=== PATIENT | male | born 1980 ===

== ENCOUNTER 2018-12-08 19:42 | Emergency (ER) | payer OTHER ==
[~2018-12-08] VITALS: Ht 162.6 cm; Wt 85.3 kg
[~2018-12-08 19:42] MED LIST: DOLOGEN CAPLET1 EACH PO; MEDROL4 MG PO
[2018-12-09] MEDS ORDERED: ZOFRAN ODT4 MG PO (04:05)
[2018-12-09] MEDS ORDERED: PEPCID40 MG PO (04:05)
[2018-12-09] MEDS ORDERED: LEVSIN/SL0.125 MG SL (04:05)
== END 2018-12-09 04:22 ==
LOC: ER 19:42
DX: R10.84 Generalized abdominal pain (principal); R11.2 Nausea with vomiting, unspecified